=== PATIENT | male | born 1975 | race Caucasian/White ===

== ENCOUNTER 2017-10-31 04:40 | Emergency (ER) | payer SELFPAY ==
[2017-10-31 04:42] VITALS: BP 122/66; PULSE 91; RESP 17; TEMP 36.8; O2SAT 100; BMI 25.5
--- NOTE | 2017-10-31 05:01 | ED.VISSUMM ---
- ER Visit Summary Date of Service: 10/31/17 Chief Complaint: [] Back pain History of Present Illness: The patient is a 42 M [] complaining of to 3 weeks of intermittent left lower back pain radiating down to the left hip. Patient denies increase physical activity. Denies injury. Denies fevers. Reports he was seen at [place] 3 days ago and given an IM shot of steroids. Reports this did not provide any relief. Reports he had negative x-rays on that time. No other complaints at this time. Physical Examination: [] Afebrile, vital signs stable. Patient has discomfort in the left paraspinal lumbosacral area. His physical exam is inconsistent. He reports significant pain while I barely touch his skin. Remainder of exam is unremarkable. Test Results: [] None. Emergency Department Course and Treatment: [] Patient given 1 mg IM Dilaudid for analgesia. His significant other is at the bedside will drive him home. He was not provided with a prescription for home. He was encouraged to follow-up with her primary care physician. Treatment Plan: [] Discharge to home. Disposition: [] Discharge, stable. Impression: [] Acute back pain This note was generated with [employer] dictation software. It may contain incorrect words, spelling, and punctuation that were not noted in review of the chart prior to signing ED Disposition - Plan for ED Patient: Chief Complaint: Back Referrals: NOT,DEFINED [Primary Care Provider] -
--- NOTE | 2017-10-31 05:03 | ED.DEP ---
ED Disposition - Plan for ED Patient: Disposition: Home or Assisted Living Chief Complaint: Back Instructions: ED Sprain Strain Lumbar Referrals: NOT,DEFINED [Primary Care Provider] -
[2017-10-31] MEDS: HYDROmorphone 1 MG/ML Syringe IM (05:05)
[2017-10-31 05:29] VITALS: BP 107/67; PULSE 75; RESP 18; O2SAT 96
== END 2017-10-31 05:30 | disposition home or self-care (01) ==
PROVIDERS: Emergency Provider Emergency Medicine
DX: M54.5 Low back pain (principal); Z72.0 Tobacco use
CPT/HCPCS: 96372; 99282